=== PATIENT | male | born 1985 | race Caucasian/White ===

== ENCOUNTER 2017-03-03 00:30 | Emergency (ER) | END 2017-03-03 02:14 | disposition home or self-care (01) ==

== ENCOUNTER 2017-03-18 07:50 | Emergency (ER) | END 2017-03-18 09:33 | disposition home or self-care (01) ==

== ENCOUNTER 2017-09-03 18:06 | Emergency (ER) | END 2017-09-03 22:37 | disposition home or self-care (01) ==